=== PATIENT | female | born 1960 | race Hispanic/Latino ===

== ENCOUNTER 2021-10-22 10:09 | Inpatient (IN) | payer MEDICAID ==
[2021-10-22] MEDS ORDERED: ZIPRASIDONE MESYLATE 20 MG VIAL IM PRN (22:07)
--- NOTE | 2021-10-23 10:22 | Consultation ---
History of Present Illness - Reason for Consult Consult date: 10/22/21 Medical management Requesting physician: SOBIA RYAN - History of Present Illness 61 YO Female with HTN, CAD, LORETA, Psychosis admitted to [facility] for psychiatric stabilization. Patient seen and evaluated in the recreation room. Patient denies fever, chills, chest pain, palpitation, adductive cough, skin rash and recent contact, no supportive COVID-19. Patient appears to be at base line level of cognition and function. No reported nursing events. Past History Past Medical History: CAD, hypertension Past Surgical History: No surgical history, Other (Reviewed) Social history: . denies: smoking, alcohol abuse Family history: hypertension Medications and Allergies Allergies Allergy/AdvReac Type Severity Reaction Status Date / Time ceftriaxone sodium Allergy Angioedema Verified 12/28/12 22:20 [From Rocephin] haloperidol [From Haldol] Allergy Unknown Verified 10/22/21 14:58 sulfamethoxazole Allergy Angioedema Verified 01/02/13 15:17 [From Bactrim] trimethoprim [From Bactrim] Allergy Angioedema Verified 01/02/13 15:17 contrast dye Allergy Unknown Unknown Uncoded 10/22/21 14:58 Home Medications Medication Instructions Recorded Confirmed Last Taken Type LORazepam [Ativan] 0.5 mg PO BID 10/22/21 10/22/21 Unknown History risperiDONE [RisperDAL] 0.5 mg PO BID 10/22/21 10/22/21 Unknown History traZODone [Desyrel] 100 mg PO QHS 10/22/21 10/22/21 Unknown History Active Meds: Active Medications Ziprasidone (Ziprasidone Mesylate 20 Mg Vial) 20 mg IM Q6H PRN PRN Reason: Agitation Last Admin: 10/22/21 22:34 Dose: 20 mg Review of Systems Constitutional: no weight loss, no weight gain, no fever, no chills Ears, nose, mouth and throat: no ear pain, no ear discharge, no decreased hearing, no nose pain Breasts: no change in shape, no swelling, no mass Cardiovascular: no chest pain, no orthopnea, no palpitations, no edema, no syncope Respiratory: no cough, no cough with sputum, no excessive sputum, no hemoptysis, no shortness of breath Gastrointestinal: no abdominal pain, no nausea, no vomiting, no change in bowel habits, no hematemesis Genitourinary Female: no pelvic pain, no flank pain, no dysuria, no urinary frequency, no urgency Rectal: no pain, no incontinence, no bleeding Musculoskeletal: no neck stiffness, no neck pain, no shooting arm pain, no arm numbness/tingling Integumentary: no rash, no pruritis, no wounds, no jaundice Neurological: no head injury, no transient paralysis, no weakness, no parathesias, no numbness, no tingling, no tremors Psychiatric: anxiety, difficulties concentrating, sadness/tearfullness, mood swings Endocrine: no cold intolerance, no excessive thirst, no polydipsia, no polyuria, no nocturia Hematologic/Lymphatic: no easy bruising, no easy bleeding, no lymphedema Allergic/Immunologic: no allergic rhinitis, no wheezing, no anaphylaxis Exam - Constitutional Vitals: Temp Pulse Resp BP Pulse Ox 97.7 F 111 H 16 115/55 93 10/22/21 23:22 10/22/21 23:22 10/22/21 23:22 10/22/21 23:22 10/22/21 23:22 General appearance: Present: no acute distress, well-nourished - EENT Eyes: Present: PERRL ENT: hearing intact, clear oral mucosa - Neck Neck: Present: supple, normal ROM - Respiratory Respiratory effort: normal Respiratory: bilateral: CTA - Cardiovascular Heart Sounds: Present: S1 & S2. Absent: rub, click - Extremities Extremities: pulses symmetrical, No edema Peripheral Pulses: within normal limits - Abdominal General gastrointestinal: Present: soft, non-tender, non-distended, normal bowel sounds Female genitourinary: Present: normal - Integumentary Integumentary: Present: clear, warm, dry - Musculoskeletal Musculoskeletal: gait normal, strength equal bilaterally - Psychiatric Psychiatric: cooperative, agitated - Neurologic Neurologic: CNII-XII intact, moves all extremities Results - Labs Labs: Abnormal lab results 10/23/21 Range/Units 06:17 POC Glucose 62 L (70-105) mg/dL Assessment and Plan - Patient Problems (1) Psychoses Onset Date: 01/03/13 Current Visit: No Status: Chronic Qualifiers: Schizophrenia type: undifferentiated schizophrenia Plan to address problem: Continue medical management, behavior change counseling, cognitive behavioral therapy, supportive care. (2) Generalized anxiety disorder Current Visit: Yes Status: Acute Plan to address problem: Benzodiazepine therapy as clinically indicated, supportive care (3) Hypertension Current Visit: Yes Status: Acute Qualifiers: Hypertension type: primary hypertension Qualified Code(s): I10 - Essential (primary) hypertension Plan to address problem: Monitor blood pressure every shift, patient is normotensive at this time. Continue to monitor. Antihypertensive therapy as clinically indicated. (4) Coronary artery disease Current Visit: Yes Status: Acute Plan to address problem: Supportive care, risk factor reduction, low-cholesterol diet. (5) Advance care planning Current Visit: Yes Status: Acute Plan to address problem: Disease education done, care plan discussed, diagnoses discussed, prognosis discussed, patient is full code, +30 minutes. (6) Preventative health care Current Visit: Yes Status: Acute Plan to address problem: Patient counseled regarding risk factor reduction, outpatient follow-up with primary care physician for all age and risk factor appropriate screening test. +30 minutes.
--- NOTE | 2021-10-23 13:02 | History and Physical Report ---
GP History & Physical - History of Present Illness Date of admission: 10/22/21 Date of Examination: 10/23/21 Reason for Admission: Danger to self, Danger to others, Failure of Outpatient Treatment Chief Complaint: Hallucinations History of Present Illness: The patient is a 61Y female with a history of schizophrenia and was admitted for stabilization. The patient was seen today. The patient presents with confusion unable to state the reason for admission. Per note, " patient was found in the [employer] parking lot displaying erratic behavior and having auditory hallucinations/talking to people that are not there. Patient stated she was waiting for her son, but her son is . Per report, patient has been off meds for two months." Patient denies suicidal/homicidal ideation and states that " God is telling me that he is using the nurses to get rid of the bad people." PAST PSYCHIATRIC HISTORY: PAST MEDICAL HISTORY: Family Psychiatric History None reported or documented SOCIAL HISTORY REVIEW OF SYSTEMS ROS: Unable to assess MENTAL STATUS General Appearance and Behavior: age appropriate, good eye contact, cooperative, calm, pleasant Cooperation: Cooperative Psychomotor Behavior: within normal limits Mood: confused Affect and affective range: Congruent with stated mood Thought Process: circumstantial Thought Content: Confused Speech: Normal volume and Regular rate and rhythm Suicidal Ideation: Denies Homicidal Ideation: Denies HI Hallucinations:Yes Delusions: None elicited Impulse Control: Limited Insight and Judgment: Limited Memory: Limited Attention: Attentive Orientation: alert and oriented Diagnoses: Schizophrenia Disorder Treatment Plan Start Risperidone 0.5mg po BID Start Klonopin 0.5mg po BID PRN Patient will be admitted for inpatient psychiatric evaluation, medication adjustment and close monitoring The patient's behavior, mood, sleep and appetite will be closely monitored. Patient will be enrolled in individual and group therapeutic sessions and encouraged to attend. Patient will be provided with a safe and structured environment. Patient's physical health needs will be addressed by the Hospitalist. Hospitalist Consulted Labs including CBC, CMP, Lipid profile and Hemoglobin A1C ordered Social Assessment will be completed and the Lead Data Architect will work with patient and family to ensure a suitable and safe disposition Medication adjustment will be made as clinically indicated Usual Wellness Christian/Preservation: - Start Trazodone 50 mg po QHS PRN - Start [place]-3 for brain health, reduce impulsivity, and as adjunctive treatment for mood disorder, continue upon discharge given overall benefits. The patient agreed on the treatment plan, understood the risk, benefit, alternative treatment, potential consequence of no treatment, and gave informed consent. Legal Status: Involuntary Reaction to Hospitalization: Accepting Patient Problems: Current Active Problems Advance care planning (Acute) Coronary artery disease (Acute) Generalized anxiety disorder (Acute) Hypertension (Acute) Preventative health care (Acute) Medications and Allergies Allergies Allergy/AdvReac Type Severity Reaction Status Date / Time ceftriaxone sodium Allergy Angioedema Verified 12/28/12 22:20 [From Rocephin] haloperidol [From Haldol] Allergy Unknown Verified 10/22/21 14:58 sulfamethoxazole Allergy Angioedema Verified 01/02/13 15:17 [From Bactrim] trimethoprim [From Bactrim] Allergy Angioedema Verified 01/02/13 15:17 contrast dye Allergy Unknown Unknown Uncoded 10/22/21 14:58 Home Medications Medication Instructions Recorded Confirmed Last Taken Type LORazepam [Ativan] 0.5 mg PO BID 10/22/21 10/22/21 Unknown History risperiDONE [RisperDAL] 0.5 mg PO BID 10/22/21 10/22/21 Unknown History traZODone [Desyrel] 100 mg PO QHS 10/22/21 10/22/21 Unknown History Active Meds: Active Medications Lorazepam (Lorazepam 0.5 Mg Tab) 0.5 mg PO BID KARLIE Ziprasidone (Ziprasidone Mesylate 20 Mg Vial) 20 mg IM Q6H PRN PRN Reason: Agitation Last Admin: 10/22/21 22:34 Dose: 20 mg Results - Results Labs/Vitals: Laboratory Last Values POC Glucose 74 mg/dL (70-105) 10/23/21 06:57 Last Vital Signs Temp 97.7 F 10/22/21 23:22 Pulse 111 H 10/22/21 23:22 Resp 16 10/22/21 23:22 BP 115/55 10/22/21 23:22 Pulse Ox 93 10/22/21 23:22 Physical Examination - Constitutional Vitals: Vital Signs Temp Pulse Resp BP Pulse Ox 97.7 F 111 H 16 115/55 93 10/22/21 23:22 10/22/21 23:22 10/22/21 23:22 10/22/21 23:22 10/22/21 23:22 Temperature -Last 24 Hours Temperature 97.7 F Mental Status Exam - Vital signs Last Vital Signs Temp 97.7 F 10/22/21 23:22 Pulse 111 H 10/22/21 23:22 Resp 16 10/22/21 23:22 BP 115/55 10/22/21 23:22 Pulse Ox 93 10/22/21 23:22 Physician Certification - Certification Statement Physician Certification Statement: This is an acknowledgement statement that CELESTE JARA is a 61 year old F who requires inpatient psychiatric admission for treatment which could reasonably be expected to improve the patient's condition for Estimated period of time patient will need to remain in the hospital: [ ] Plan for post-hospital care: [ ]
[2021-10-23] MEDS: risperiDONE 0.25 MG TAB PO SCH (21:19)
[2021-10-23] MEDS ORDERED: LORazepam 0.5 MG TAB PO SCH (22:00)
[2021-10-24] MEDS: risperiDONE 0.25 MG TAB PO SCH ×2 (09:27→22:30)
--- NOTE | 2021-10-24 10:04 | Progress Note ---
Subjective Date of service: 10/24/21 Subjective Comment: 10/24: The patient was seen this morning. The patient is calm, alert and oriented to self. She presents with constricted affect and withdrawn; she reports doing fine. She reports sleep and appetite as good. She denies any current suicidal ideation and denies hallucinations. REVIEW OF SYSTEMS Constitutional: Negative for weight loss ENT: Negative for stridor Respiratory: Negative for cough or hemoptysis All other systems reviewed and are negative MENTAL STATUS General Appearance and Behavior: age appropriate, good eye contact, cooperative, calm. Cooperation: Cooperative Psychomotor Behavior: within normal limits Mood: "fine" Affect and affective range: Incongruent with stated mood Thought Process: goal directed Thought Content: reality oriented Speech: Normal volume and Regular rate and rhythm Suicidal Ideation: Denies Homicidal Ideation: Denies HI Hallucinations:Denies Delusions: None elicited Impulse Control: Limited Insight and Judgment: Limited Memory: Limited Attention: Attentive Orientation: alert and oriented Diagnoses: Schizophrenia Disorder Treatment Plan Start Risperidone 0.5mg po BID Start Klonopin 0.5mg po BID PRN Patient will be admitted for inpatient psychiatric evaluation, medication adjustment and close monitoring The patient's behavior, mood, sleep and appetite will be closely monitored. Patient will be enrolled in individual and group therapeutic sessions and encouraged to attend. Patient will be provided with a safe and structured environment. Patient's physical health needs will be addressed by the Hospitalist. Hospitalist Consulted Labs including CBC, CMP, Lipid profile and Hemoglobin A1C ordered Social Assessment will be completed and the Document Control Assistant will work with patient and family to ensure a suitable and safe disposition Medication adjustment will be made as clinically indicated Usual Wellness Zoroastrianism/Preservation: - Start Trazodone 50 mg po QHS PRN - Start [place]-3 for brain health, reduce impulsivity, and as adjunctive treatment for mood disorder, continue upon discharge given overall benefits. The patient agreed on the treatment plan, understood the risk, benefit, alternative treatment, potential consequence of no treatment, and gave informed consent. Legal Status: Involuntary Reaction to Hospitalization: Accepting Medications and Allergies Allergies Allergy/AdvReac Type Severity Reaction Status Date / Time ceftriaxone sodium Allergy Angioedema Verified 12/28/12 22:20 [From Rocephin] haloperidol [From Haldol] Allergy Unknown Verified 10/22/21 14:58 sulfamethoxazole Allergy Angioedema Verified 01/02/13 15:17 [From Bactrim] trimethoprim [From Bactrim] Allergy Angioedema Verified 01/02/13 15:17 contrast dye Allergy Unknown Unknown Uncoded 10/22/21 14:58 Home Medications Medication Instructions Recorded Confirmed Last Taken Type LORazepam [Ativan] 0.5 mg PO BID 10/22/21 10/22/21 Unknown History risperiDONE [RisperDAL] 0.5 mg PO BID 10/22/21 10/22/21 Unknown History traZODone [Desyrel] 100 mg PO QHS 10/22/21 10/22/21 Unknown History Active Meds: Active Medications Clonazepam (Clonazepam 0.5 Mg Tab) 0.5 mg PO BID PRN PRN Reason: Anxiety Risperidone (Risperidone 0.25 Mg Tab) 0.5 mg PO BID KARLIE Last Admin: 10/24/21 09:27 Dose: 0.5 mg Ziprasidone (Ziprasidone Mesylate 20 Mg Vial) 20 mg IM Q6H PRN PRN Reason: Agitation Last Admin: 10/22/21 22:34 Dose: 20 mg Results - Results Labs/Vitals: Laboratory Last Values POC Glucose 74 mg/dL (70-105) 10/23/21 06:57 Last Vital Signs Temp 98.7 F 10/24/21 07:51 Pulse 98 H 10/24/21 07:51 Resp 16 10/24/21 07:51 BP 110/75 10/24/21 07:51 Pulse Ox 95 10/24/21 07:51
[2021-10-24 21:30] LABS: Blood Urea Nitrogen 17 mg/dL (7-17); Calcium 9.7 mg/dL (8.4-10.2); Chol/HDL Ratio 4.66 %; HDL Cholesterol 54 mg/dL (40-59); Hemolysis Index 23; LDL Cholesterol,Direct 165 mg/dL (50-130)
[2021-10-24 21:32] LABS: BUN/Creatinine Ratio 28
[2021-10-25] MEDS: risperiDONE 0.25 MG TAB PO SCH (09:22)
[2021-10-25] MEDS: clonazePAM 0.5 MG TAB PO PRN ×2 (09:22→21:16)
--- NOTE | 2021-10-25 09:49 | Progress Note ---
Subjective Date of service: 10/25/21 Subjective Comment: 10/25: The patient was seen at breakfast. She reports doing ok. She states sleep and appetite as good. The patient endorses auditory hallucinations " hearing Junior and God things and about heaven. She denies suicidal/homicidal ideation and denies visual hallucinations. Increase Risperidone to 1mg po BID 10/24: The patient was seen this morning. The patient is calm, alert and oriented to self. She presents with constricted affect and withdrawn; she reports doing fine. She reports sleep and appetite as good. She denies any current suicidal ideation and denies hallucinations. REVIEW OF SYSTEMS Constitutional: Negative for weight loss ENT: Negative for stridor Respiratory: Negative for cough or hemoptysis All other systems reviewed and are negative MENTAL STATUS General Appearance and Behavior: age appropriate, good eye contact, cooperative, calm. Cooperation: Cooperative Psychomotor Behavior: within normal limits Mood: "fine" Affect and affective range: Incongruent with stated mood Thought Process: goal directed Thought Content: hallucinations Speech: Normal volume and Regular rate and rhythm Suicidal Ideation: Denies Homicidal Ideation: Denies HI Hallucinations:Auditory Delusions: None elicited Impulse Control: Limited Insight and Judgment: Limited Memory: Limited Attention: Attentive Orientation: alert and oriented Diagnoses: Schizophrenia Disorder Treatment Plan Start Risperidone 1mg po BID continue Klonopin 0.5mg po BID PRN Patient will be admitted for inpatient psychiatric evaluation, medication adjustment and close monitoring The patient's behavior, mood, sleep and appetite will be closely monitored. Patient will be enrolled in individual and group therapeutic sessions and encouraged to attend. Patient will be provided with a safe and structured environment. Patient's physical health needs will be addressed by the Hospitalist. Hospitalist Consulted Labs including CBC, CMP, Lipid profile and Hemoglobin A1C ordered Social Assessment will be completed and the Pad Extraction Tender will work with patient and family to ensure a suitable and safe disposition Medication adjustment will be made as clinically indicated Usual Wellness Hindu/Preservation: - Start Trazodone 50 mg po QHS PRN - Start [place]-3 for brain health, reduce impulsivity, and as adjunctive treatment for mood disorder, continue upon discharge given overall benefits. The patient agreed on the treatment plan, understood the risk, benefit, alternative treatment, potential consequence of no treatment, and gave informed consent. Legal Status: Involuntary Reaction to Hospitalization: Accepting Medications and Allergies Medications and Allergies Allergies Allergy/AdvReac Type Severity Reaction Status Date / Time ceftriaxone sodium Allergy Angioedema Verified 12/28/12 22:20 [From Rocephin] haloperidol [From Haldol] Allergy Unknown Verified 10/22/21 14:58 sulfamethoxazole Allergy Angioedema Verified 01/02/13 15:17 [From Bactrim] trimethoprim [From Bactrim] Allergy Angioedema Verified 01/02/13 15:17 contrast dye Allergy Unknown Unknown Uncoded 10/22/21 14:58 Home Medications Medication Instructions Recorded Confirmed Last Taken Type LORazepam [Ativan] 0.5 mg PO BID 10/22/21 10/22/21 Unknown History risperiDONE [RisperDAL] 0.5 mg PO BID 10/22/21 10/22/21 Unknown History traZODone [Desyrel] 100 mg PO QHS 10/22/21 10/22/21 Unknown History Active Meds: Active Medications Clonazepam (Clonazepam 0.5 Mg Tab) 0.5 mg PO BID PRN PRN Reason: Anxiety Last Admin: 10/25/21 09:22 Dose: 0.5 mg Risperidone (Risperidone 0.25 Mg Tab) 0.5 mg PO BID KARLIE Last Admin: 10/25/21 09:22 Dose: 0.5 mg Ziprasidone (Ziprasidone Mesylate 20 Mg Vial) 20 mg IM Q6H PRN PRN Reason: Agitation Last Admin: 10/22/21 22:34 Dose: 20 mg Results - Results Labs/Vitals: Laboratory Last Values Sodium 140 mmol/L (137-145) 10/24/21 20:09 Potassium 3.6 mmol/L (3.6-5.0) 10/24/21 20:09 Chloride 105.5 mmol/L (98-107) 10/24/21 20:09 Carbon Dioxide 19 mmol/L (22-30) L 10/24/21 20:09 Anion Gap 19 mmol/L 10/24/21 20:09 BUN 17 mg/dL (7-17) 10/24/21 20:09 Creatinine 0.6 mg/dL (0.6-1.2) 10/24/21 20:09 Estimated GFR > 60 ml/min 10/24/21 20:09 BUN/Creatinine Ratio 28 % 10/24/21 20:09 Glucose 86 mg/dL (65-100) 10/24/21 20:09 POC Glucose 74 mg/dL (70-105) 10/23/21 06:57 Hemoglobin A1c 6.1 % (4-6) H 10/24/21 20:09 Calcium 9.7 mg/dL (8.4-10.2) 10/24/21 20:09 Triglycerides 120 mg/dL (2-149) 10/24/21 20:09 Cholesterol 252 mg/dL (50-199) H 10/24/21 20:09 LDL Cholesterol Direct 165 mg/dL (50-130) H 10/24/21 20:09 HDL Cholesterol 54 mg/dL (40-59) 10/24/21 20:09 Cholesterol/HDL Ratio 4.66 % 10/24/21 20:09 Last Vital Signs Temp 98.5 F 10/25/21 08:30 Pulse 106 H 10/25/21 08:30 Resp 20 10/25/21 08:30 BP 114/69 10/25/21 08:30 Pulse Ox 97 10/25/21 08:30
[2021-10-25] MEDS: risperiDONE 1 MG TAB PO SCH ×2 (10:00→21:16)
--- NOTE | 2021-10-25 19:26 | Progress Note ---
Assessment and Plan - Patient Problems (1) Psychoses Onset Date: 01/03/13 Current Visit: No Status: Chronic Qualifiers: Schizophrenia type: undifferentiated schizophrenia Plan to address problem: Continue medical management, behavior change counseling, cognitive behavioral therapy, supportive care. (2) Generalized anxiety disorder Current Visit: Yes Status: Acute Plan to address problem: Benzodiazepine therapy as clinically indicated, supportive care (3) Hypertension Current Visit: Yes Status: Acute Qualifiers: Hypertension type: primary hypertension Qualified Code(s): I10 - Essential (primary) hypertension Plan to address problem: Monitor blood pressure every shift, patient is normotensive at this time. Continue to monitor. Antihypertensive therapy as clinically indicated. (4) Coronary artery disease Current Visit: Yes Status: Acute Plan to address problem: Supportive care, risk factor reduction, low-cholesterol diet. (5) Advance care planning Current Visit: Yes Status: Acute Plan to address problem: Disease education done, care plan discussed, diagnoses discussed, prognosis discussed, patient is full code, +30 minutes. (6) Preventative health care Current Visit: Yes Status: Acute Plan to address problem: Patient counseled regarding risk factor reduction, outpatient follow-up with primary care physician for all age and risk factor appropriate screening test. +30 minutes. History Interval history: 61 YO Female with HTN, CAD, LORETA, Psychosis admitted to [facility] for psychiatric stabilization. Patient seen and evaluated in the recreation room. Patient denies fever, chills, chest pain, palpitation, adductive cough, skin rash and recent contact, no supportive COVID-19. Patient appears to be at baseline level of cognition and function. No reported nursing events. Hospitalist Physical - Constitutional Vitals: Temp Pulse Resp BP Pulse Ox 98.5 F 106 H 20 114/69 97 10/25/21 08:30 10/25/21 08:30 10/25/21 08:30 10/25/21 08:30 10/25/21 08:30 General appearance: Present: no acute distress, well-nourished - EENT Eyes: Present: PERRL, EOM intact ENT: hearing intact - Neck Neck: Present: supple - Respiratory Respiratory effort: normal Respiratory: bilateral: CTA - Cardiovascular Rhythm: regular Heart Sounds: Present: S1 & S2 - Extremities Extremities: no ischemia Peripheral Pulses: within normal limits - Abdominal General gastrointestinal: soft, non-tender, non-distended - Integumentary Integumentary: Present: clear, dry - Psychiatric Psychiatric: cooperative - Neurologic Neurologic: CNII-XII intact Results - Labs CBC & Chem 7: 10/24/21 20:09 Labs: Laboratory Last Values Sodium 140 mmol/L (137-145) 10/24/21 20:09 Potassium 3.6 mmol/L (3.6-5.0) 10/24/21 20:09 Chloride 105.5 mmol/L (98-107) 10/24/21 20:09 Carbon Dioxide 19 mmol/L (22-30) L 10/24/21 20:09 Anion Gap 19 mmol/L 10/24/21 20:09 BUN 17 mg/dL (7-17) 10/24/21 20:09 Creatinine 0.6 mg/dL (0.6-1.2) 10/24/21 20:09 Estimated GFR > 60 ml/min 10/24/21 20:09 BUN/Creatinine Ratio 28 % 10/24/21 20:09 Glucose 86 mg/dL (65-100) 10/24/21 20:09 POC Glucose 74 mg/dL (70-105) 10/23/21 06:57 Hemoglobin A1c 6.1 % (4-6) H 10/24/21 20:09 Calcium 9.7 mg/dL (8.4-10.2) 10/24/21 20:09 Triglycerides 120 mg/dL (2-149) 10/24/21 20:09 Cholesterol 252 mg/dL (50-199) H 10/24/21 20:09 LDL Cholesterol Direct 165 mg/dL (50-130) H 10/24/21 20:09 HDL Cholesterol 54 mg/dL (40-59) 10/24/21 20:09 Cholesterol/HDL Ratio 4.66 % 10/24/21 20:09 Steel/IV: Voiding Method Toilet Active Medications - Current Medications Current Medications: Generic Name Dose Route Start Last Admin Trade Name Freq PRN Reason Stop Dose Admin Clonazepam 0.5 mg 10/23/21 14:00 10/25/21 09:22 Clonazepam 0.5 Mg Tab PO 0.5 mg BID PRN Administration Anxiety Risperidone 1 mg 10/25/21 10:00 10/25/21 10:00 Risperidone 1 Mg Tab PO Not Given BID KARLIE Ziprasidone 20 mg 10/22/21 22:07 08/04/22 22:34 Ziprasidone Mesylate 20 Mg Vial IM 20 mg Q6H PRN Administration Agitation
[2021-10-26] MEDS: risperiDONE 1 MG TAB PO SCH ×2 (09:14→21:21)
--- NOTE | 2021-10-26 09:55 | Progress Note ---
Subjective Date of service: 10/26/21 Subjective Comment: 10/26:The patient was seen today. She is calm and cooperative. She states auditory hallucinations are subsiding " I do love God." She denies suicidal/homicidal ideation and denies visual hallucinations. 10/25: The patient was seen at breakfast. She reports doing ok. She states sleep and appetite as good. The patient endorses auditory hallucinations " hearing Junior and God things and about heaven. She denies suicidal/homicidal ideation and denies visual hallucinations. Increase Risperidone to 1mg po BID 10/24: The patient was seen this morning. The patient is calm, alert and oriented to self. She presents with constricted affect and withdrawn; she reports doing fine. She reports sleep and appetite as good. She denies any current suicidal ideation and denies hallucinations. REVIEW OF SYSTEMS Constitutional: Negative for weight loss ENT: Negative for stridor Respiratory: Negative for cough or hemoptysis All other systems reviewed and are negative MENTAL STATUS General Appearance and Behavior: age appropriate, good eye contact, cooperative, calm. Cooperation: Cooperative Psychomotor Behavior: within normal limits Mood: "fine" Affect and affective range: Incongruent with stated mood Thought Process: goal directed Thought Content: hallucinations Speech: Normal volume and Regular rate and rhythm Suicidal Ideation: Denies Homicidal Ideation: Denies HI Hallucinations:Auditory Delusions: None elicited Impulse Control: Limited Insight and Judgment: Limited Memory: Limited Attention: Attentive Orientation: alert and oriented Diagnoses: Schizophrenia Disorder Treatment Plan Start Risperidone 1mg po BID continue Klonopin 0.5mg po BID PRN Patient will be admitted for inpatient psychiatric evaluation, medication adjustment and close monitoring The patient's behavior, mood, sleep and appetite will be closely monitored. Patient will be enrolled in individual and group therapeutic sessions and encouraged to attend. Patient will be provided with a safe and structured environment. Patient's physical health needs will be addressed by the Hospitalist. Hospitalist Consulted Labs including CBC, CMP, Lipid profile and Hemoglobin A1C ordered Social Assessment will be completed and the Roof Tiler will work with patient and family to ensure a suitable and safe disposition Medication adjustment will be made as clinically indicated Usual Wellness Jainism/Preservation: - Start Trazodone 50 mg po QHS PRN - Start [place]-3 for brain health, reduce impulsivity, and as adjunctive treatment for mood disorder, continue upon discharge given overall benefits. The patient agreed on the treatment plan, understood the risk, benefit, alternative treatment, potential consequence of no treatment, and gave informed consent. Legal Status: Involuntary Reaction to Hospitalization: Accepting Medications and Allergies Medications and Allergies Allergies Allergy/AdvReac Type Severity Reaction Status Date / Time ceftriaxone sodium Allergy Angioedema Verified 12/28/12 22:20 [From Rocephin] haloperidol [From Haldol] Allergy Unknown Verified 10/22/21 14:58 sulfamethoxazole Allergy Angioedema Verified 01/02/13 15:17 [From Bactrim] trimethoprim [From Bactrim] Allergy Angioedema Verified 01/02/13 15:17 contrast dye Allergy Unknown Unknown Uncoded 10/22/21 14:58 Home Medications Medication Instructions Recorded Confirmed Last Taken Type LORazepam [Ativan] 0.5 mg PO BID 10/22/21 10/22/21 Unknown History risperiDONE [RisperDAL] 0.5 mg PO BID 10/22/21 10/22/21 Unknown History traZODone [Desyrel] 100 mg PO QHS 10/22/21 10/22/21 Unknown History Active Meds: Active Medications Clonazepam (Clonazepam 0.5 Mg Tab) 0.5 mg PO BID PRN PRN Reason: Anxiety Last Admin: 10/25/21 21:16 Dose: 0.5 mg Risperidone (Risperidone 1 Mg Tab) 1 mg PO BID KARLIE Last Admin: 10/26/21 09:14 Dose: 1 mg Ziprasidone (Ziprasidone Mesylate 20 Mg Vial) 20 mg IM Q6H PRN PRN Reason: Agitation Last Admin: 10/22/21 22:34 Dose: 20 mg Results - Results Labs/Vitals: Laboratory Last Values Sodium 140 mmol/L (137-145) 10/24/21 20:09 Potassium 3.6 mmol/L (3.6-5.0) 10/24/21 20:09 Chloride 105.5 mmol/L (98-107) 10/24/21 20:09 Carbon Dioxide 19 mmol/L (22-30) L 10/24/21 20:09 Anion Gap 19 mmol/L 10/24/21 20:09 BUN 17 mg/dL (7-17) 10/24/21 20:09 Creatinine 0.6 mg/dL (0.6-1.2) 10/24/21 20:09 Estimated GFR > 60 ml/min 10/24/21 20:09 BUN/Creatinine Ratio 28 % 10/24/21 20:09 Glucose 86 mg/dL (65-100) 10/24/21 20:09 POC Glucose 74 mg/dL (70-105) 10/23/21 06:57 Hemoglobin A1c 6.1 % (4-6) H 10/24/21 20:09 Calcium 9.7 mg/dL (8.4-10.2) 10/24/21 20:09 Triglycerides 120 mg/dL (2-149) 10/24/21 20:09 Cholesterol 252 mg/dL (50-199) H 10/24/21 20:09 LDL Cholesterol Direct 165 mg/dL (50-130) H 10/24/21 20:09 HDL Cholesterol 54 mg/dL (40-59) 10/24/21 20:09 Cholesterol/HDL Ratio 4.66 % 10/24/21 20:09 Last Vital Signs Temp 98.5 F 10/25/21 08:30 Pulse 106 H 10/25/21 08:30 Resp 20 10/25/21 08:30 BP 114/69 10/25/21 08:30 Pulse Ox 97 10/25/21 08:30
[2021-10-26] MEDS: clonazePAM 0.5 MG TAB PO PRN ×2 (09:58→21:21)
--- NOTE | 2021-10-26 20:09 | Progress Note ---
Assessment and Plan Assessment and Plan - Patient Problems (1) Psychoses Onset Date: 01/03/13 Current Visit: No Status: Chronic Qualifiers: Schizophrenia type: undifferentiated schizophrenia Plan to address problem: Continue medical management, behavior change counseling, cognitive behavioral therapy, supportive care. (2) Generalized anxiety disorder Current Visit: Yes Status: Acute Plan to address problem: Benzodiazepine therapy as clinically indicated, supportive care (3) Hypertension Current Visit: Yes Status: Acute Qualifiers: Hypertension type: primary hypertension Qualified Code(s): I10 - Essential (primary) hypertension Plan to address problem: Monitor blood pressure every shift, patient is normotensive at this time. Continue to monitor. Antihypertensive therapy as clinically indicated. (4) Coronary artery disease Current Visit: Yes Status: Acute Plan to address problem: Supportive care, risk factor reduction, low-cholesterol diet. (5) Advance care planning Current Visit: Yes Status: Acute Plan to address problem: Disease education done, care plan discussed, diagnoses discussed, prognosis discussed, patient is full code, +30 minutes. (6) Preventative health care Current Visit: Yes Status: Acute Plan to address problem: Patient counseled regarding risk factor reduction, outpatient follow-up with primary care physician for all age and risk factor appropriate screening test. +30 minutes. Subjective Date of service: 10/26/21 Principal diagnosis: Psychosis Interval history: History Interval history: 61 YO Female with HTN, CAD, LORETA, Psychosis admitted to [facility] for ps ychiatric stabilization. Patient seen and evaluated in the recreation room. Patient denies fever, chills, chest pain, palpitation, adductive cough, skin rash and recent contact, no supportive COVID-19. Patient appears to be at baseline level of cognition and function. No reported nursing events. Objective - Constitutional Vitals: Vital Signs - 12hr 10/26/21 09:42 Temperature 98.6 F Pulse Rate 117 H Respiratory 18 Rate Blood Pressure 109/72 O2 Sat by Pulse 96 Oximetry General appearance: Present: no acute distress, well-nourished - EENT Eyes: PERRL, EOM intact ENT: hearing intact, clear oral mucosa Ears: bilateral: normal - Neck Neck: supple, normal ROM - Respiratory Respiratory effort: normal Respiratory: bilateral: CTA - Breasts Breasts: normal - Cardiovascular Heart rate: 78 Rhythm: regular Heart Sounds: Present: S1 & S2. Absent: gallop, rub Extremities: pulses intact, No edema, normal color, Full ROM - Gastrointestinal General gastrointestinal: Present: soft, non-tender, non-distended, normal bowel sounds - Genitourinary Female genitourinary: normal - Integumentary Integumentary: clear, warm, dry - Musculoskeletal Musculoskeletal: 1, strength equal bilaterally - Neurologic Neurologic: moves all extremities - Psychiatric Psychiatric: memory intact, appropriate mood/affect, intact judgment & insight - Labs CBC & Chem 7: 10/24/21 20:09
[2021-10-26] MEDS: ACETAMINOPHEN 325 MG TAB PO PRN (21:21)
[2021-10-27] MEDS: risperiDONE 1 MG TAB PO SCH ×2 (09:31→21:01)
[2021-10-27] MEDS: ACETAMINOPHEN 325 MG TAB PO PRN (09:31)
[2021-10-27] MEDS: clonazePAM 0.5 MG TAB PO PRN (09:31)
--- NOTE | 2021-10-27 09:39 | Progress Note ---
Subjective Date of service: 10/27/21 Principal diagnosis: Psychosis Subjective Comment: 10/27:The patient was seen today. She is calm and cooperative. The patient is focused on discharge. She reports mood as good. She denies suicidal/homicidal ideation and denies visual hallucinations. 10/26:The patient was seen today. She is calm and cooperative. She states auditory hallucinations are subsiding " I do love God." She denies suicidal/homicidal ideation and denies visual hallucinations. 10/25: The patient was seen at breakfast. She reports doing ok. She states sleep and appetite as good. The patient endorses auditory hallucinations " hearing Junior and God things and about heaven. She denies suicidal/homicidal ideation and denies visual hallucinations. Increase Risperidone to 1mg po BID 10/24: The patient was seen this morning. The patient is calm, alert and oriented to self. She presents with constricted affect and withdrawn; she reports doing fine. She reports sleep and appetite as good. She denies any current suicidal ideation and denies hallucinations. REVIEW OF SYSTEMS Constitutional: Negative for weight loss ENT: Negative for stridor Respiratory: Negative for cough or hemoptysis All other systems reviewed and are negative MENTAL STATUS General Appearance and Behavior: age appropriate, good eye contact, cooperative, calm. Cooperation: Cooperative Psychomotor Behavior: within normal limits Mood: "good" Affect and affective range: Incongruent with stated mood Thought Process: goal directed Thought Content: reality oriented Speech: Normal volume and Regular rate and rhythm Suicidal Ideation: Denies Homicidal Ideation: Denies HI Hallucinations:Denies Delusions: None elicited Impulse Control: Limited Insight and Judgment: Limited Memory: Limited Attention: Attentive Orientation: alert and oriented Diagnoses: Schizophrenia Disorder Treatment Plan Start Risperidone 1mg po BID Continue Klonopin 0.5mg po BID PRN Patient will be admitted for inpatient psychiatric evaluation, medication adjustment and close monitoring The patient's behavior, mood, sleep and appetite will be closely monitored. Patient will be enrolled in individual and group therapeutic sessions and en couraged to attend. Patient will be provided with a safe and structured environment. Patient's physical health needs will be addressed by the Hospitalist. Hospitalist Consulted Labs including CBC, CMP, Lipid profile and Hemoglobin A1C ordered Social Assessment will be completed and the Bindery Machine Setter will work with patient and family to ensure a suitable and safe disposition Medication adjustment will be made as clinically indicated Usual Wellness Christian/Preservation: - Start Trazodone 50 mg po QHS PRN - Start [place]-3 for brain health, reduce impulsivity, and as adjunctive treatment for mood disorder, continue upon discharge given overall benefits. The patient agreed on the treatment plan, understood the risk, benefit, alternative treatment, potential consequence of no treatment, and gave informed consent. Legal Status: Involuntary Reaction to Hospitalization: Accepting Medications and Allergies Medications and Allergies Allergies Allergy/AdvReac Type Severity Reaction Status Date / Time ceftriaxone sodium Allergy Angioedema Verified 12/28/12 22:20 [From Rocephin] haloperidol [From Haldol] Allergy Unknown Verified 10/22/21 14:58 sulfamethoxazole Allergy Angioedema Verified 01/02/13 15:17 [From Bactrim] trimethoprim [From Bactrim] Allergy Angioedema Verified 01/02/13 15:17 contrast dye Allergy Unknown Unknown Uncoded 10/22/21 14:58 Home Medications Medication Instructions Recorded Confirmed Last Taken Type LORazepam [Ativan] 0.5 mg PO BID 10/22/21 10/22/21 Unknown History risperiDONE [RisperDAL] 0.5 mg PO BID 10/22/21 10/22/21 Unknown History traZODone [Desyrel] 100 mg PO QHS 10/22/21 10/22/21 Unknown History Active Meds: Active Medications Acetaminophen (Acetaminophen 325 Mg Tab) 650 mg PO Q8H PRN PRN Reason: Pain, Mild (1-3) Last Admin: 10/27/21 09:31 Dose: 650 mg Clonazepam (Clonazepam 0.5 Mg Tab) 0.5 mg PO BID PRN PRN Reason: Anxiety Last Admin: 10/27/21 09:31 Dose: 0.5 mg Risperidone (Risperidone 1 Mg Tab) 1 mg PO BID KARLIE Last Admin: 10/27/21 09:31 Dose: 1 mg Ziprasidone (Ziprasidone Mesylate 20 Mg Vial) 20 mg IM Q6H PRN PRN Reason: Agitation Last Admin: 10/22/21 22:34 Dose: 20 mg Results - Results Labs/Vitals: Laboratory Last Values Sodium 140 mmol/L (137-145) 10/24/21 20:09 Potassium 3.6 mmol/L (3.6-5.0) 10/24/21 20:09 Chloride 105.5 mmol/L (98-107) 10/24/21 20:09 Carbon Dioxide 19 mmol/L (22-30) L 10/24/21 20:09 Anion Gap 19 mmol/L 10/24/21 20:09 BUN 17 mg/dL (7-17) 10/24/21 20:09 Creatinine 0.6 mg/dL (0.6-1.2) 10/24/21 20:09 Estimated GFR > 60 ml/min 10/24/21 20:09 BUN/Creatinine Ratio 28 % 10/24/21 20:09 Glucose 86 mg/dL (65-100) 10/24/21 20:09 POC Glucose 74 mg/dL (70-105) 10/23/21 06:57 Hemoglobin A1c 6.1 % (4-6) H 10/24/21 20:09 Calcium 9.7 mg/dL (8.4-10.2) 10/24/21 20:09 Triglycerides 120 mg/dL (2-149) 10/24/21 20:09 Cholesterol 252 mg/dL (50-199) H 10/24/21 20:09 LDL Cholesterol Direct 165 mg/dL (50-130) H 10/24/21 20:09 HDL Cholesterol 54 mg/dL (40-59) 10/24/21 20:09 Cholesterol/HDL Ratio 4.66 % 10/24/21 20:09 Last Vital Signs Temp 98.7 F 10/26/21 20:33 Pulse 103 H 10/26/21 20:33 Resp 18 10/26/21 21:21 BP 120/75 10/26/21 20:33 Pulse Ox 97 10/26/21 20:33
[2021-10-27 17:19] LABS: Mucus,Urine FEW /HPF
[2021-10-27 17:39] LABS: Bilirubin,Urine 1+ (Negative); Blood,Urine 3+ (Negative); Color,Urine Straw (Yellow)
[2021-10-27 17:40] LABS: Ictotest,Urine Negative (Negative); Protein,Urine 300 mg/dL mg/dL (Negative); RBC,Urine > 182.0 /HPF (0.0-6.0); WBC,Urine > 182.0 /HPF (0.0-6.0)
--- NOTE | 2021-10-28 07:55 | Progress Note ---
Assessment and Plan Assessment and Plan - Patient Problems (1) Psychoses Onset Date: 01/03/13 Current Visit: No Status: Chronic Qualifiers: Schizophrenia type: undifferentiated schizophrenia Plan to address problem: Continue medical management, behavior change counseling, cognitive behavioral therapy, supportive care. (2) Generalized anxiety disorder Current Visit: Yes Status: Acute Plan to address problem: Benzodiazepine therapy as clinically indicated, supportive care (3) Hypertension Current Visit: Yes Status: Acute Qualifiers: Hypertension type: primary hypertension Qualified Code(s): I10 - Essential (primary) hypertension Plan to address problem: Monitor blood pressure every shift, patient is normotensive at this time. Continue to monitor. Antihypertensive therapy as clinically indicated. (4) Coronary artery disease Current Visit: Yes Status: Acute Plan to address problem: Supportive care, risk factor reduction, low-cholesterol diet. (5) Advance care planning Current Visit: Yes Status: Acute Plan to address problem: Disease education done, care plan discussed, diagnoses discussed, prognosis discussed, patient is full code, +30 minutes. (6) Preventative health care Current Visit: Yes Status: Acute Plan to address problem: Patient counseled regarding risk factor reduction, outpatient follow-up with primary care physician for all age and risk factor appropriate screening test. +30 minutes. Subjective Date of service: 10/27/21 Principal diagnosis: Psychosis Interval history: History Interval history: 61 YO Female with HTN, CAD, LORETA, Psychosis admitted to [facility] for ps ychiatric stabilization. Patient seen and evaluated in the recreation room. Patient denies fever, chills, chest pain, palpitation, adductive cough, skin rash and recent contact, no supportive COVID-19. Patient appears to be at baseline level of cognition and function. No reported nursing events. Objective - Constitutional General appearance: Present: no acute distress, well-nourished - EENT Eyes: PERRL, EOM intact ENT: hearing intact, clear oral mucosa Ears: bilateral: normal - Neck Neck: supple, normal ROM - Respiratory Respiratory effort: normal Respiratory: bilateral: CTA - Breasts Breasts: normal - Cardiovascular Heart rate: 78 Rhythm: regular Heart Sounds: Present: S1 & S2. Absent: gallop, rub Extremities: pulses intact, No edema, normal color, Full ROM - Gastrointestinal General gastrointestinal: Present: soft, non-tender, non-distended, normal bowel sounds - Genitourinary Female genitourinary: normal - Integumentary Integumentary: clear, warm, dry - Musculoskeletal Musculoskeletal: 1, strength equal bilaterally - Neurologic Neurologic: moves all extremities - Psychiatric Psychiatric: memory intact, appropriate mood/affect, intact judgment & insight - Labs CBC & Chem 7: 10/24/21 20:09 Labs: Abnormal lab results 10/27/21 Range/Units 15:25 Urine WBC (Auto) > 182.0 H (0.0-6.0) /HPF U Epithel Cells (Auto) 15.0 H (0-13.0) /HPF
--- NOTE | 2021-10-28 09:36 | Progress Note ---
Subjective Date of service: 10/28/21 Principal diagnosis: Psychosis Subjective Comment: 10/28:The patient was seen today. She is calm and cooperative. She reports doing alright. She reports sleep and appetite as good. She denies suicidal/homicidal ideation and denies visual hallucinations. 10/27:The patient was seen today. She is calm and cooperative. The patient is focused on discharge. She reports mood as good. She denies suicidal/homicidal ideation and denies visual hallucinations. 10/26:The patient was seen today. She is calm and cooperative. She states auditory hallucinations are subsiding " I do love God." She denies suicidal/homicidal ideation and denies visual hallucinations. 10/25: The patient was seen at breakfast. She reports doing ok. She states sleep and appetite as good. The patient endorses auditory hallucinations " hearing Junior and God things and about heaven. She denies suicidal/homicidal ideation and denies visual hallucinations. Increase Risperidone to 1mg po BID 10/24: The patient was seen this morning. The patient is calm, alert and oriented to self. She presents with constricted affect and withdrawn; she re ports doing fine. She reports sleep and appetite as good. She denies any current suicidal ideation and denies hallucinations. REVIEW OF SYSTEMS Constitutional: Negative for weight loss ENT: Negative for stridor Respiratory: Negative for cough or hemoptysis All other systems reviewed and are negative MENTAL STATUS General Appearance and Behavior: age appropriate, good eye contact, cooperative, calm. Cooperation: Cooperative Psychomotor Behavior: within normal limits Mood: "alright" Affect and affective range: congruent with stated mood Thought Process: goal directed Thought Content: reality oriented Speech: Normal volume and Regular rate and rhythm Suicidal Ideation: Denies Homicidal Ideation: Denies HI Hallucinations:Denies Delusions: None elicited Impulse Control: Limited Insight and Judgment: Limited Memory: Limited Attention: Attentive Orientation: alert and oriented Diagnoses: Schizophrenia Disorder Treatment Plan Continue Risperidone 1mg po BID Continue Klonopin 0.5mg po BID PRN Patient will be admitted for inpatient psychiatric evaluation, medication adjustment and close monitoring The patient's behavior, mood, sleep and appetite will be closely monitored. Patient will be enrolled in individual and group therapeutic sessions and encouraged to attend. Patient will be provided with a safe and structured environment. Patient's physical health needs will be addressed by the Hospitalist. Yocasta courtney Consulted Labs including CBC, CMP, Lipid profile and Hemoglobin A1C ordered Social Assessment will be completed and the Electric Utility Lineworker will work with patient and family to ensure a suitable and safe disposition Medication adjustment will be made as clinically indicated Usual Wellness Druze/Preservation: - Start Trazodone 50 mg po QHS PRN - Start [place]-3 for brain health, reduce impulsivity, and as adjunctive treatment for mood disorder, continue upon discharge given overall benefits. The patient agreed on the treatment plan, understood the risk, benefit, alternative treatment, potential consequence of no treatment, and gave informed consent. Legal Status: Involuntary Reaction to Hospitalization: Accepting Medications and Allergies Medications and Allergies Allergies Allergy/AdvReac Type Severity Reaction Status Date / Time ceftriaxone sodium Allergy Angioedema Verified 12/28/12 22:20 [From Rocephin] haloperidol [From Haldol] Allergy Unknown Verified 10/22/21 14:58 sulfamethoxazole Allergy Angioedema Verified 01/02/13 15:17 [From Bactrim] trimethoprim [From Bactrim] Allergy Angioedema Verified 01/02/13 15:17 contrast dye Allergy Unknown Unknown Uncoded 10/22/21 14:58 Home Medications Medication Instructions Recorded Confirmed Last Taken Type LORazepam [Ativan] 0.5 mg PO BID 10/22/21 10/22/21 Unknown History risperiDONE [RisperDAL] 0.5 mg PO BID 10/22/21 10/22/21 Unknown History traZODone [Desyrel] 100 mg PO QHS 10/22/21 10/22/21 Unknown History Active Meds: Active Medications Acetaminophen (Acetaminophen 325 Mg Tab) 650 mg PO Q8H PRN PRN Reason: Pain, Mild (1-3) Last Admin: 10/27/21 09:31 Dose: 650 mg Clonazepam (Clonazepam 0.5 Mg Tab) 0.5 mg PO BID PRN PRN Reason: Anxiety Last Admin: 10/27/21 09:31 Dose: 0.5 mg Risperidone (Risperidone 1 Mg Tab) 1 mg PO BID KARLIE Last Admin: 10/27/21 21:01 Dose: 1 mg Ziprasidone (Ziprasidone Mesylate 20 Mg Vial) 20 mg IM Q6H PRN PRN Reason: Agitation Last Admin: 10/22/21 22:34 Dose: 20 mg Results - Results Labs/Vitals: Laboratory Last Values Sodium 140 mmol/L (137-145) 10/24/21 20:09 Potassium 3.6 mmol/L (3.6-5.0) 10/24/21 20:09 Chloride 105.5 mmol/L (98-107) 10/24/21 20:09 Carbon Dioxide 19 mmol/L (22-30) L 10/24/21 20:09 Anion Gap 19 mmol/L 10/24/21 20:09 BUN 17 mg/dL (7-17) 10/24/21 20:09 Creatinine 0.6 mg/dL (0.6-1.2) 10/24/21 20:09 Estimated GFR > 60 ml/min 10/24/21 20:09 BUN/Creatinine Ratio 28 % 10/24/21 20:09 Glucose 86 mg/dL (65-100) 10/24/21 20:09 POC Glucose 74 mg/dL (70-105) 10/23/21 06:57 Hemoglobin A1c 6.1 % (4-6) H 10/24/21 20:09 Calcium 9.7 mg/dL (8.4-10.2) 10/24/21 20:09 Triglycerides 120 mg/dL (2-149) 10/24/21 20:09 Cholesterol 252 mg/dL (50-199) H 10/24/21 20:09 LDL Cholesterol Direct 165 mg/dL (50-130) H 10/24/21 20:09 HDL Cholesterol 54 mg/dL (40-59) 10/24/21 20:09 Cholesterol/HDL Ratio 4.66 % 10/24/21 20:09 Urine Color Straw (Yellow) 10/27/21 15:25 Urine Turbidity Cloudy (Clear) 10/27/21 15:25 Urine pH 5.0 (5.0-7.0) 10/27/21 15:25 Ur Specific [place] 1.005 (1.003-1.030) 10/27/21 15:25 Urine Protein 300 mg/dl mg/dL (Negative) 10/27/21 15:25 Urine Glucose (UA) Negative mg/dL (Negative) 10/27/21 15:25 Urine Ketones Negative mg/dL (Negative) 10/27/21 15:25 Urine Blood 3+ (Negative) 10/27/21 15:25 Urine Nitrite Negative (Negative) 10/27/21 15:25 Ur Reducing Substances Not Reportable 10/27/21 15:25 Urine Bilirubin 1+ (Negative) 10/27/21 15:25 Urine Ictotest Negative (Negative) 10/27/21 15:25 Urine Urobilinogen 0.0 mg/dL (<2.0) 10/27/21 15:25 Ur Leukocyte Esterase 3+ (Negative) 10/27/21 15:25 Urine WBC (Auto) > 182.0 /HPF (0.0-6.0) H 10/27/21 15:25 Urine RBC (Auto) > 182.0 /HPF (0.0-6.0) 10/27/21 15:25 U Epithel Cells (Auto) 15.0 /HPF (0-13.0) H 10/27/21 15:25 Urine WBC Clumps 3+ /HPF 10/27/21 15:25 Urine Mucus Few /HPF 10/27/21 15:25 Urine Yeast (Budding) 2+ /HPF 10/27/21 15:25 Last Vital Signs Temp 98.2 F 10/28/21 08:21 Pulse 99 H 10/28/21 08:21 Resp 16 10/28/21 08:21 BP 109/61 10/28/21 08:21 Pulse Ox 100 10/28/21 08:21
[2021-10-28] MEDS: risperiDONE 1 MG TAB PO SCH ×2 (09:45→21:13)
[2021-10-28] MEDS: clonazePAM 0.5 MG TAB PO PRN ×2 (09:47→21:13)
[2021-10-28] MEDS: ACETAMINOPHEN 325 MG TAB PO PRN (13:36)
--- NOTE | 2021-10-29 08:28 | Progress Note ---
Assessment and Plan Assessment and Plan - Patient Problems (1) Psychoses Onset Date: 01/03/13 Current Visit: No Status: Chronic Qualifiers: Schizophrenia type: undifferentiated schizophrenia Plan to address problem: Continue medical management, behavior change counseling, cognitive behavioral therapy, supportive care. (2) Generalized anxiety disorder Current Visit: Yes Status: Acute Plan to address problem: Benzodiazepine therapy as clinically indicated, supportive care (3) Hypertension Current Visit: Yes Status: Acute Qualifiers: Hypertension type: primary hypertension Qualified Code(s): I10 - Essential (primary) hypertension Plan to address problem: Monitor blood pressure every shift, patient is normotensive at this time. Continue to monitor. Antihypertensive therapy as clinically indicated. (4) Coronary artery disease Current Visit: Yes Status: Acute Plan to address problem: Supportive care, risk factor reduction, low-cholesterol diet. (5) Advance care planning Current Visit: Yes Status: Acute Plan to address problem: Disease education done, care plan discussed, diagnoses discussed, prognosis discussed, patient is full code, +30 minutes. (6) Preventative health care Current Visit: Yes Status: Acute Plan to address problem: Patient counseled regarding risk factor reduction, outpatient follow-up with primary care physician for all age and risk factor appropriate screening test. +30 minutes. Subjective Date of service: 10/28/21 Principal diagnosis: Psychosis Interval history: History Interval history: 61 YO Female with HTN, CAD, LORETA, Psychosis admitted to [facility] for ps ychiatric stabilization. Patient seen and evaluated in the recreation room. Patient denies fever, chills, chest pain, palpitation, adductive cough, skin rash and recent contact, no supportive COVID-19. Patient appears to be at baseline level of cognition and function. No reported nursing events. Objective - Constitutional General appearance: Present: no acute distress, well-nourished - EENT Eyes: PERRL, EOM intact ENT: hearing intact, clear oral mucosa Ears: bilateral: normal - Neck Neck: supple, normal ROM - Respiratory Respiratory effort: normal Respiratory: bilateral: CTA - Breasts Breasts: normal - Cardiovascular Heart rate: 78 Rhythm: regular Heart Sounds: Present: S1 & S2. Absent: gallop, rub Extremities: pulses intact, No edema, normal color, Full ROM - Gastrointestinal General gastrointestinal: Present: soft, non-tender, non-distended, normal bowel sounds - Genitourinary Female genitourinary: normal - Integumentary Integumentary: clear, warm, dry - Musculoskeletal Musculoskeletal: 1, strength equal bilaterally - Neurologic Neurologic: moves all extremities - Psychiatric Psychiatric: memory intact, appropriate mood/affect, intact judgment & insight - Labs CBC & Chem 7: 10/24/21 20:09
--- NOTE | 2021-10-29 09:36 | Discharge Summary ---
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 The patients mood, cognition, behavior, motivation, compliance to treatment and appreciation on family/social support are improved and stabilized. At the time of discharge, the patient had no suicidal ideas, no homicidal ideas, no aggressive thoughts, no endangering behavior and no debilitating adverse effects. The patient agreed on the treatment plan, understood the risk, benefit, alternative treatment, potential consequence of no treatment, and gave informed consent. Progress note: 10/28:The patient was seen today. She is calm and cooperative. She reports doing alright. She reports sleep and appetite as good. She denies suicidal/homicidal ideation and denies visual hallucinations. 10/27:The patient was seen today. She is calm and cooperative. The patient is focused on discharge. She reports mood as good. She denies suicidal/homicidal ideation and denies visual hallucinations. 10/26:The patient was seen today. She is calm and cooperative. She states auditory hallucinations are subsiding " I do love God." She denies suicidal/homicidal ideation and denies visual hallucinations. 10/25: The patient was seen at breakfast. She reports doing ok. She states sleep and appetite as good. The patient endorses auditory hallucinations " hearing Junior and God things and about heaven. She denies suicidal/homicidal ideation and denies visual hallucinations. Increase Risperidone to 1mg po BID 10/24: The patient was seen this morning. The patient is calm, alert and oriented to self. She presents with constricted affect and withdrawn; she reports doing fine. She reports sleep and appetite as good. She denies any current suicidal ideation and denies hallucinations. Disposition: 30 STILL A PATIENT Allergies/Adverse Reactions: Allergies ceftriaxone sodium [From Rocephin] Allergy (Verified 12/28/12 22:20) Angioedema haloperidol [From Haldol] Allergy (Verified 10/22/21 14:58) Unknown sulfamethoxazole [From Bactrim] Allergy (Verified 01/02/13 15:17) Angioedema trimethoprim [From Bactrim] Allergy (Verified 01/02/13 15:17) Angioedema contrast dye Allergy (Unknown, Uncoded 10/22/21 14:58) Unknown Vital Signs: Last Vital Signs Temp 98.7 F 10/28/21 19:04 Pulse 97 H 10/28/21 19:04 Resp 18 10/28/21 19:04 BP 109/71 10/28/21 19:04 Pulse Ox 96 10/28/21 19:04 Last Lab: Laboratory Last Values Sodium 140 mmol/L (137-145) 10/24/21 20:09 Potassium 3.6 mmol/L (3.6-5.0) 10/24/21 20:09 Chloride 105.5 mmol/L (98-107) 10/24/21 20:09 Carbon Dioxide 19 mmol/L (22-30) L 10/24/21 20:09 Anion Gap 19 mmol/L 10/24/21 20:09 BUN 17 mg/dL (7-17) 10/24/21 20:09 Creatinine 0.6 mg/dL (0.6-1.2) 10/24/21 20:09 Estimated GFR > 60 ml/min 10/24/21 20:09 BUN/Creatinine Ratio 28 % 10/24/21 20:09 Glucose 86 mg/dL (65-100) 10/24/21 20:09 POC Glucose 74 mg/dL (70-105) 10/23/21 06:57 Hemoglobin A1c 6.1 % (4-6) H 10/24/21 20:09 Calcium 9.7 mg/dL (8.4-10.2) 10/24/21 20:09 Triglycerides 120 mg/dL (2-149) 10/24/21 20:09 Cholesterol 252 mg/dL (50-199) H 10/24/21 20:09 LDL Cholesterol Direct 165 mg/dL (50-130) H 10/24/21 20:09 HDL Cholesterol 54 mg/dL (40-59) 10/24/21 20:09 Cholesterol/HDL Ratio 4.66 % 10/24/21 20:09 Urine Color Straw (Yellow) 10/27/21 15:25 Urine Turbidity Cloudy (Clear) 10/27/21 15:25 Urine pH 5.0 (5.0-7.0) 10/27/21 15:25 Ur Specific Britt 1.005 (1.003-1.030) 10/27/21 15:25 Urine Protein 300 mg/dl mg/dL (Negative) 10/27/21 15:25 Urine Glucose (UA) Negative mg/dL (Negative) 10/27/21 15:25 Urine Ketones Negative mg/dL (Negative) 10/27/21 15:25 Urine Blood 3+ (Negative) 10/27/21 15:25 Urine Nitrite Negative (Negative) 10/27/21 15:25 Ur Reducing Substances Not Reportable 10/27/21 15:25 Urine Bilirubin 1+ (Negative) 10/27/21 15:25 Urine Ictotest Negative (Negative) 10/27/21 15:25 Urine Urobilinogen 0.0 mg/dL (<2.0) 10/27/21 15:25 Ur Leukocyte Esterase 3+ (Negative) 10/27/21 15:25 Urine WBC (Auto) > 182.0 /HPF (0.0-6.0) H 10/27/21 15:25 Urine RBC (Auto) > 182.0 /HPF (0.0-6.0) 10/27/21 15:25 U Epithel Cells (Auto) 15.0 /HPF (0-13.0) H 10/27/21 15:25 Urine WBC Clumps 3+ /HPF 10/27/21 15:25 Urine Mucus Few /HPF 10/27/21 15:25 Urine Yeast (Budding) 2+ /HPF 10/27/21 15:25 Core Measure Documentation - Palliative Care Palliative Care/ Comfort Measures: Not Applicable - Core Measures Any of the following diagnoses?: none - VTE Discharge Requirements Deep Vein Thrombosis/Pulmonary Embolism Present on Admission: No Exam - Constitutional Vitals: Temp Pulse Resp BP Pulse Ox 98.7 F 97 H 18 109/71 96 10/28/21 19:04 10/28/21 19:04 10/28/21 19:04 10/28/21 19:04 10/28/21 19:04 Plan Activity: advance as tolerated Weight Bearing Status: Weight Bear as Tolerated Care Plan Goals: Maintain good and stable mental health. Plan of Treatment: The patient should be compliant with medications, not to use drugs and not to drink alcohol.The patient understands that if suicidal ideas, homicidal ideas, or any endangering thoughts/behavior arise, they should immediately seek for emergent assistance including but not limited to crisis hot line and emergency room. Follow up with outpatient Psychiatrist and PCP within 7 - 14 days of discharge. Follow up with: PRIMARY CARE,MD [Primary Care Provider] - 7 Days Prescriptions: traZODone [Desyrel] 100 mg PO QHS 30 Days #30 clonazePAM [KlonoPIN] 0.5 mg PO BID PRN 30 Days #15 tablet PRN Reason: Anxiety risperiDONE [RisperDAL] 1 mg PO BID 30 Days #60 tablet
[2021-10-29] MEDS: risperiDONE 1 MG TAB PO SCH ×2 (10:02→21:08)
[2021-10-29] MEDS: clonazePAM 0.5 MG TAB PO PRN ×2 (10:14→21:09)
[2021-10-29] MEDS: ACETAMINOPHEN 325 MG TAB PO PRN ×2 (14:47→23:38)
[2021-10-30] MEDS: risperiDONE 1 MG TAB PO SCH (09:02)
[2021-10-30 09:07] VITALS: BP 102/64
--- NOTE | 2021-10-30 11:00 | Discharge Summary ---
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 The patients mood, cognition, behavior, motivation, compliance to treatment and appreciation on family/social support are improved and stabilized. At the time of discharge, the patient had no suicidal ideas, no homicidal ideas, no aggressive thoughts, no endangering behavior and no debilitating adverse effects. The patient agreed on the treatment plan, understood the risk, benefit, alternative treatment, potential consequence of no treatment, and gave informed consent. 10/30 The patient was seen today. She is clear for discharge today. The patient was actually cleared yesterday but there was said to have been problems with transportation. The patient is calm, cooperative and pleasant. She denies SI/HI or hallucinations of any kind. 10/28:The patient was seen today. She is calm and cooperative. She reports doing alright. She reports sleep and appetite as good. She denies suicidal/homicidal ideation and denies visual hallucinations. 10/27:The patient was seen today. She is calm and cooperative. The patient is focused on discharge. She reports mood as good. She denies suicidal/homicidal ideation and denies visual hallucinations. 10/26:The patient was seen today. She is calm and cooperative. She states auditory hallucinations are subsiding " I do love God." She denies suicidal/homicidal ideation and denies visual hallucinations. 10/25: The patient was seen at breakfast. She reports doing ok. She states sleep and appetite as good. The patient endorses auditory hallucinations " hearing Junior and God things and about heaven. She denies suicidal/homicidal ideation and denies visual hallucinations. Increase Risperidone to 1mg po BID 10/24: The patient was seen this morning. The patient is calm, alert and oriented to self. She presents with constricted affect and withdrawn; she reports doing fine. She reports sleep and appetite as good. She denies any current suicidal ideation and denies hallucinations. Disposition: 01 HOME / SELF CARE / HOMELESS Time spent for discharge: 35 Allergies/Adverse Reactions: Allergies ceftriaxone sodium [From Rocephin] Allergy (Verified 12/28/12 22:20) Angioedema haloperidol [From Haldol] Allergy (Verified 10/22/21 14:58) Unknown sulfamethoxazole [From Bactrim] Allergy (Verified 01/02/13 15:17) Angioedema trimethoprim [From Bactrim] Allergy (Verified 01/02/13 15:17) Angioedema contrast dye Allergy (Unknown, Uncoded 10/22/21 14:58) Unknown Vital Signs: Last Vital Signs Temp 98.0 F 10/30/21 07:37 Pulse 102 H 10/30/21 07:37 Resp 16 10/30/21 07:37 BP 102/64 10/30/21 07:37 Pulse Ox 96 10/30/21 07:37 Last Lab: Laboratory Last Values Sodium 140 mmol/L (137-145) 10/24/21 20:09 Potassium 3.6 mmol/L (3.6-5.0) 10/24/21 20:09 Chloride 105.5 mmol/L (98-107) 10/24/21 20:09 Carbon Dioxide 19 mmol/L (22-30) L 10/24/21 20:09 Anion Gap 19 mmol/L 10/24/21 20:09 BUN 17 mg/dL (7-17) 10/24/21 20:09 Creatinine 0.6 mg/dL (0.6-1.2) 10/24/21 20:09 Estimated GFR > 60 ml/min 10/24/21 20:09 BUN/Creatinine Ratio 28 % 10/24/21 20:09 Glucose 86 mg/dL (65-100) 10/24/21 20:09 POC Glucose 74 mg/dL (70-105) 10/23/21 06:57 Hemoglobin A1c 6.1 % (4-6) H 10/24/21 20:09 Calcium 9.7 mg/dL (8.4-10.2) 10/24/21 20:09 Triglycerides 120 mg/dL (2-149) 10/24/21 20:09 Cholesterol 252 mg/dL (50-199) H 10/24/21 20:09 LDL Cholesterol Direct 165 mg/dL (50-130) H 10/24/21 20:09 HDL Cholesterol 54 mg/dL (40-59) 10/24/21 20:09 Cholesterol/HDL Ratio 4.66 % 10/24/21 20:09 Urine Color Straw (Yellow) 10/27/21 15:25 Urine Turbidity Cloudy (Clear) 10/27/21 15:25 Urine pH 5.0 (5.0-7.0) 10/27/21 15:25 Ur Specific Bruno 1.005 (1.003-1.030) 10/27/21 15:25 Urine Protein 300 mg/dl mg/dL (Negative) 10/27/21 15:25 Urine Glucose (UA) Negative mg/dL (Negative) 10/27/21 15:25 Urine Ketones Negative mg/dL (Negative) 10/27/21 15:25 Urine Blood 3+ (Negative) 10/27/21 15:25 Urine Nitrite Negative (Negative) 10/27/21 15:25 Ur Reducing Substances Not Reportable 10/27/21 15:25 Urine Bilirubin 1+ (Negative) 10/27/21 15:25 Urine Ictotest Negative (Negative) 10/27/21 15:25 Urine Urobilinogen 0.0 mg/dL (<2.0) 10/27/21 15:25 Ur Leukocyte Esterase 3+ (Negative) 10/27/21 15:25 Urine WBC (Auto) > 182.0 /HPF (0.0-6.0) H 10/27/21 15:25 Urine RBC (Auto) > 182.0 /HPF (0.0-6.0) 10/27/21 15:25 U Epithel Cells (Auto) 15.0 /HPF (0-13.0) H 10/27/21 15:25 Urine WBC Clumps 3+ /HPF 10/27/21 15:25 Urine Mucus Few /HPF 10/27/21 15:25 Urine Yeast (Budding) 2+ /HPF 10/27/21 15:25 Core Measure Documentation - Palliative Care Palliative Care/ Comfort Measures: Not Applicable - Core Measures Any of the following diagnoses?: none Exam - Constitutional Vitals: Temp Pulse Resp BP Pulse Ox 98.0 F 102 H 16 102/64 96 10/30/21 07:37 10/30/21 07:37 10/30/21 07:37 10/30/21 07:37 10/30/21 07:37 General appearance: Present: no acute distress - EENT Eyes: Present: PERRL, EOM intact ENT: hearing intact, clear oral mucosa - Neck Neck: Present: supple, normal ROM - Respiratory Respiratory effort: normal Plan Activity: advance as tolerated Weight Bearing Status: Weight Bear as Tolerated Care Plan Goals: Maintain good and stable mental health. Plan of Treatment: The patient should be compliant with medications, not to use drugs and not to drink alcohol.The patient understands that if suicidal ideas, homicidal ideas, or any endangering thoughts/behavior arise, they should immediately seek for emergent assistance including but not limited to crisis hot line and emergency room. Follow up with outpatient Psychiatrist and PCP within 7 - 14 days of discharge. Follow up with: PRIMARY CARE, [Primary Care Provider] - 7 Days Prescriptions: traZODone [Desyrel] 100 mg PO QHS 30 Days #30 clonazePAM [KlonoPIN] 0.5 mg PO BID PRN 30 Days #15 tablet PRN Reason: Anxiety risperiDONE [RisperDAL] 1 mg PO BID 30 Days #60 tablet
== END 2021-10-30 11:28 | disposition home or self-care (01) | DRG 885 ==
LOC: 3A 10:09 → UNDOADMIN 10:09 → 5A 21:41
PROVIDERS: ADMIT Psychiatry & Neurology Psychiatry; ATTEND Psychiatry & Neurology Psychiatry
DX: F20.9 Schizophrenia, unspecified (principal); F41.1 Generalized anxiety disorder; I10 Essential (primary) hypertension; I25.10 Atherosclerotic heart disease of native coronary artery without angina pectoris; Z82.49 Family history of ischemic heart disease and other diseases of the circulatory system; Z91.041 Radiographic dye allergy status; Z88.8 Allergy status to other drugs, medicaments and biological substances
CPT/HCPCS: 36415; 80048; 80061; 81001; 82962; 83036; G0378; J3486